=== PATIENT | male | born 1955 | race Caucasian/White ===

== ENCOUNTER 2018-03-30 11:00 | Inpatient (IN) | payer BC ==
[2018-03-30] VITALS (16 sets, daily range): BP systolic 133–134; BP diastolic 72–85
[~2018-03-30] VITALS: Ht 182.9 cm; Wt 90.7 kg
[2018-03-30 11:42] LABS: URINE BILIRUBIN NEGATIVE (Negative); URINE BLOOD 1+ (Negative); URINE CLARITY CLEAR; URINE COLOR YELLOW; URINE GLUCOSE-RANDOM* NEGATIVE (Negative); URINE KETONES NEGATIVE (Negative); URINE LEUKOCYTES NEGATIVE (Negative); URINE NITRITE NEGATIVE (Negative); URINE PROTEIN (DIPSTICK) NEGATIVE (Negative); URINE SPECIFIC GRAVITY 1.015 (1.005-1.035); URINE UROBILINOGEN 0.2 E.U./dl (0.2-1.0)
[2018-03-30 11:49] LABS: AMP/METHAMP Negative (Negative); BARBITURATES Negative (Negative); BENZODIAZEPINES Negative (Negative); COCAINE Negative (Negative); METHADONE Negative (Negative); OPIATES Negative (Negative); PCP Negative (Negative)
[2018-03-30 12:03] LABS: ABSOLUTE NEUTROPHILS 4.7 thou/uL (1.4-8.2); BASOPHILS 0.3 % (0.0-2.0); EOSINOPHILS 5.2 % (0.0-3.0); HEMATOCRIT 45.1 % (42.0-52.0); HEMOGLOBIN 15.4 gm/dL (14.0-18.0); LYMPHOCYTES 15.2 % (24.0-44.0); MCH 30.7 pg (26.0-34.0); MCHC 34.1 g/dL (28.0-37.0); MCV 90.1 fL (80.0-100.0); MONOCYTES 6.8 % (1.0-8.0); PLATELET COUNT 222 thou/uL (150-400); POLYS 72.5 % (36.0-66.0); RBC 5.01 mil/uL (4.50-6.00); WBC 6.5 thou/uL (4.0-11.0)
[2018-03-30 12:03] LABS: AMORPHOUS URATES Few /LPF (None Seen); BACTERIA None Seen /HPF (None Seen); CASTS None Seen /LPF (None Seen); SQUAMOUS None Seen /LPF (0-3); URINE RBC None Seen /HPF (0-2); URINE WBC None Seen /HPF (0-5)
[2018-03-30 12:14] LABS: ANION GAP 7 mmol/L (7-16); BUN 13 mg/dL (7-18); CALCIUM 9.3 mg/dL (8.5-10.1); CHLORIDE 105 mmol/L (98-107); CO2 30 mmol/L (21-32); CREATININE 1.5 mg/dL (0.7-1.3); GLUCOSE 97 mg/dL (74-106); POTASSIUM 4.1 mmol/L (3.5-5.1); SODIUM 142 mmol/L (136-145)
[2018-03-30 12:19] LABS: ALBUMIN 3.7 g/dL (3.4-5.0); DIRECT BILIRUBIN 0.1 mg/dL (<0.1-0.3); SALICYLATE < 2.8 mg/dL (2.8-20.0); SGOT 13 U/L (15-37); SGPT 22 U/L (30-65); TOTAL BILIRUBIN 0.5 mg/dL (<0.1-1.0); TOTAL PROTEIN 6.7 g/dL (6.4-8.2)
[2018-03-30 13:04] LABS: CHOLESTEROL 202 mg/dL (<200); HDL CHOLESTEROL 46 mg/dL (>40); LDL CHOLESTEROL 131 mg/dL (<100); TC:HDL 4.4 Ratio (Not establshd); TRIGLYCERIDE 125 mg/dL (<150); VLDL 25 mg/dL (<40)
--- NOTE | 2018-03-30 15:18 | NUR ---
1400 PATIENT ADMITTED TO ROOM 528B. PATIENT IS ALERT AND ORIENTED X4. EDUARDA. GFRIPS ARE STRONG BILATERALLY. PATIENT DOE'S. LUNGS ARE CLEAR. ABD IS SOFT WITH BSX4. PATIENT CAN BE UP TO BATHROOM INDEPENDENTLY. PATIENT HAS NO SKIN ISSUES. PATIENT HAS GLACOMA AND DAUGHTER WILL BRING BACK EYE MED. PATIENT HAS SOME ARTHRITIS. PATIENT HAS SMALL GROWTH ON HIS LEFT EAR. CONSULT CALLED TO DR. JOHNSON. PATIENT GIVEN BOXED LUNCH AND WATER. PATIENT IS RESTING QUIETLY AT THIS TIME AND IS ON Q 12 MIN CHECKS WHILE IN ROOM. EDGARDO HAS AUTHORIZATION TO USE IPAD FOR WORK AND DAUGHTER WILL TAKE HOME AFTER HE IS DONE. WILL CONTINUE TO MONITER.
--- NOTE | 2018-03-31 05:59 | NUR ---
PT PLEASANT AND COOPERATIVE, BUT OBVIOUSLY VERY DEPRESSED. WATCHED SOME TV THIS EVENING AND SLEPT WELL THROUGH THE NIGHT.
--- NOTE | 2018-03-31 08:09 | EKG ---
[place] [address] [facility] [place] [address] ELECTROCARDIOGRAM REPORT Name: HERIBERTO CALERO Room #: 528B-A ADM IN .R.#: [id number] Admission: 03/30/18 Attend Phys: Micha Arteaga DO Discharge: Date of : 53 Report #: [id number] THIS REPORT FOR: //name// [facility] Test Date: 2018-03-30 Test Time: 17:43:49 Pat Name: HERIBERTO CALERO Department: Room: 52B Gender: M Real Time Analyst: Rubi REYES : 1955 Requested By: Micha Arteaga Order Number: [id number] MD: Dylan Tai Measurements Intervals Dale Rate: 69 P: 76 CT: 173 QRS: 10 QRSD: 103 T: 39 QT: 388 QTc: 416 Interpretive Statements Sinus rhythm Ventricular premature complex No previous ECG available for comparison Electronically Signed On 03-31-2018 8:09:30 BAND SAW FILER by Dylan Tai [email or web address] <ELECTRONICALLY SIGNED> By: Dylan Tai MD, [facility] 03/31/18 0809 [id number] Dylan Tai MD, FACC /EPI
[2018-03-31 10:00] VITALS: BP 119/75
[2018-03-31 11:25] VITALS: BP 119/75
--- NOTE | 2018-03-31 16:31 | NUR ---
PATIENT IS CALM, ISOLATIVE, AFFECT IS FLAT, MOOD IS DEPRESSED, BRIGHTENS DURING FAMILY VISIT. PATIENT DENIES SUICIDAL AND HOMOCIDAL IDEATION. PATIENT RATED BOTH DEPRESSION AND ANXIETY 5/10. HE DENIES HAVING PHYSICAL PAIN. PATIENT STATES HIS APPETITE HAS IMPROVED SINCE HE MOVED IN WITH HIS CHILDREN. FAMILY BROUGHT IN OUTSIDE FOOD, THIS RN DID EDUCATION ON OUTSIDE FOOD HANDBOOK POLICY, AND FAMILY VERBALIZES UNDERSTANDING THAT OUTSIDE FOOD IS NOT ALLOWED ON THE UNIT PER HOSPITAL HANDBOOK PROTOCOL. WILL CONTINUE PLAN OF CARE ORDERED, AND MONITOR FOR SAFETY.
--- NOTE | 2018-03-31 19:32 | NUR ---
ASSUMED CARE AT 1900. PATIENT CURRENTLY IN TV ROOM. CALM, PLEASANT, CONVERSATIONAL. DENIES DISTRESS. NO NONVERBAL CUES OF DISTRESS.
[2018-03-31 19:55] VITALS: BP 117/77
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
--- NOTE | 2018-04-01 05:30 | NUR ---
patient sat in TV room until he went to sleep. slept well thru night. up this am ambulating in cavazos. encouraging water, patient reported feeling dehydrated. no behaviors noted.
--- NOTE | 2018-04-01 09:06 | NUR ---
ASSUMED CARE OF PT AROUND 0715, A&0X4, ATE BREAKFAST AND RETURNED TO HIS ROOM, SAT AND VISITED RE: LOSS OF SPOUSE. DECLINED ANY MEDS FOR ANY GENERAL ACHES AND PAINS AT THIS TIME. ENCOURAGED HIM TO CALL OUT FOR ANY NEEDS, WILL CONTINUE TO MONITOR
--- NOTE | 2018-04-01 16:42 | NUR ---
PT SET UP FOR SHOWER/TOWELS AT HIS CONVENIENCE, ENCOURAGED HIM TO LET ME KNOW. AT THIS TIME HE'S PLAYING CARD GAMES W/HIS CHILDREN.
[2018-04-01 19:49] VITALS: BP 129/79
--- NOTE | 2018-04-02 00:05 | NUR ---
PT QUIETLY WATCHING TV TONIGHT BEFORE RETIRING TO BED. GOT UP AGAIN ONCE BUT BARELY STAYED IN THE ACTIVITY ROOM AND WENT BACK TO SLEEP. HAD HS SNACK, DENIES PAIN, ABLE TO ADMINISTER HIS EYEDROPS WITH NO DIFFICULTY. DENIES PAIN, UP ADLIB, MONITORED.
[2018-04-02 08:00] VITALS: BP 119/77
--- NOTE | 2018-04-02 08:57 | NUR ---
ASSUMED CARE OF PT AT APPROX 0700. PT IS ALERT AND ORIENTED X4, EVEN NON LABORED BREATHING, NO SIGNS OF ACUTE DISTRESS. PT UP FOR BREAKFAST THIS MORNING AND ALSO PARTICIPATING IN REC. THERAPY GROUP. PT VERBALIZES THAT HE IS HOPING FOR DC TODAY WITH DAUGHTER. WILL CONTINUE TO MONITOR AND UPDATE NEEDED.
[2018-04-02] MEDS ORDERED: CELEXA10 MG PO (11:04)
[2018-04-02] MEDS ORDERED: LATANOPROST2.5 ML OPHTHALMIC (11:07)
[2018-04-02] MEDS ORDERED: FIBERCON CHEWA625 MG PO (11:07)
[2018-04-02] MEDS ORDERED: VITAMIN D5000 UNIT PO (11:08)
[2018-04-02 12:09] VITALS: BP 119/77
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
--- NOTE | 2018-04-02 13:35 | NUR ---
[facility] provided documentation to pt for referral to outpatient services for [facility], [facility] Off Work[facility], and [facility]. SW schedule pt with the appointment, and provided documentation for the appointments. Pt will be discharged in the care of his daughter Gita Vilchis. He will be moving in with son Rogers at [address] [place] [address]. Pt does not any other services from [facility] at this time.
--- NOTE | 2018-04-04 17:33 | D ---
[facility] [place] [address] DISCHARGE SUMMARY Name: HERIBERTO CALERO Room #: 528B-A [facility] IN ..#: [id number] Admission: 03/30/18 Attend Phys: Micha Arteaga DO Discharge: 04/02/18 Date of : 53 Report #: [id number] THIS REPORT FOR: //name// CC: Micha Arteaga [facility] physician/PCP DATE OF SERVICE: 04/02/2018 DISCHARGE DIAGNOSES: As follows, major depressive disorder, single episode, severe, improved. ATTENDING: Micha Arteaga DO PATTERNATOR: Ken Falcon MD DISCHARGE MEDICATIONS: Citalopram 10 mg p.o. daily, prescription given, #30; latanoprost 0.005% ophthalmic 1 drop to the right eye nightly, prescription given 2.5 ml bottle with refill, continue 5000 international units vitamin D daily. He will be discharging to his Son, Malvin regalado. Aftercare will be at [facility] program again this coming Thursday. His intake is at noon. Psychiatrist appointment 04/27/2018 at [facility]. REASON FOR ADMISSION: Brought to the Emergency Room on 03/30/2018 due to suicidal ideation with intent to stab himself or electrocute himself, increasing depression over the last several months. His family brought him to move up here with his kids on Thursday before admission. HOSPITAL COURSE: The patient was admitted to the Adult Psychiatry Unit. Much of the milieu was of dementia nature. So, the program was really boring for the patient. He did engage in activities. His sleep remained steady though, suboptimal, around 5 hours a night. He did qualify for protein malnutrition; however, did relatively well on the unit. Laboratories this admission were grossly normal including a CMP, lipids, CBC. Urine drug screen was negative. Urinalysis was also negative. PHYSICAL EXAMINATION: VITALS ON THE DAY OF DISCHARGE: As follows, temperature 37.3, pulse 65, respirations 18, BP 119/77. GENERAL: Well-developed, well-nourished male, appearing stated age, wearing glasses. ATTENTION: Intact. CONCENTRATION: Intact. SPEECH: Normal rate, rhythm and tone. [address] [address] DISCHARGE SUMMARY Name: HERIBERTO CALERO Room #: 528B-A [facility]#: [id number] Admission: 03/30/18 Attend Phys: Micha Arteaga DO Discharge: 04/02/18 Date of : 53 Report #: [id number] THOUGHT PROCESS: Linear and goal-directed. THOUGHT CONTENT: preventing symptoms. No psychomotor agitation. Some psychomotor retardation. MOOD AND AFFECT: Congruent and constricted. No noted visual or tactile hallucinations or SI, HI. Denies hopelessness, helplessness. MEMORY: Not formally tested. INSIGHT AND JUDGMENT: Fair. FUND OF KNOWLEDGE: Above average. Prognosis for this patient is good as he complies with [facility] treatment, keeps himself busy, pursues psychotherapeutic medication management. <ELECTRONICALLY SIGNED> By: Micha Arteaga DO 04/04/18 1733 1759 [id number] Micha Arteaga DO /nt
== END 2018-04-02 14:07 | disposition home or self-care (01) | DRG 885 ==
LOC: ER 11:00 → SBH 12:40 → EROBS 12:40 → SBH 13:10 → ENTRNSPT 04-02 14:03 → SBH 04-02 14:07
PROVIDERS: Physician Assistant; ADMIT Psychiatry & Neurology Psychiatry
DX: F32.2 Major depressive disorder, single episode, severe without psychotic features (principal); N17.9 Acute kidney failure, unspecified; E44.0 Moderate protein-calorie malnutrition; F22 Delusional disorders; H40.9 Unspecified glaucoma; K21.9 Gastro-esophageal reflux disease without esophagitis; G47.33 Obstructive sleep apnea (adult) (pediatric); Z60.2 Problems related to living alone; J30.2 Other seasonal allergic rhinitis; Z68.27 Body mass index [BMI] 27.0-27.9, adult; Z88.0 Allergy status to penicillin; Z88.2 Allergy status to sulfonamides; Z79.899 Other long term (current) drug therapy; Z28.21 Immunization not carried out because of patient refusal
CPT/HCPCS: 10880